=== PATIENT | male | born 1955 | race Caucasian/White ===

== ENCOUNTER 2021-06-10 08:05 | Day surgery (SDC) | payer OTHER ==
[2021-06-03 15:41] VITALS: BMI 25.5
[~2021-06-10 08:05] MED LIST: LACTATED RINGERS 1,000 ML IV SCH
[2021-06-10 08:31] VITALS: TEMP 97.6
[2021-06-10] MEDS ORDERED: LIDOCAINE 1% (10MG/ML) FOR IV START INTRADERMA ONE (08:31)
[2021-06-10] MEDS ORDERED: LIDOCAINE 1% INJ 10MG/ML (20 ML MDV) ONE (08:44)
[2021-06-10] MEDS ORDERED: PROPOFOL 10 MG/ML 20 ML VIAL IV ONE (08:44)
--- NOTE | 2021-06-10 08:48 | P.GSHP ---
History of Present Illness H&P Date: 06/10/21 Chief Complaint: Colon cancer screening 66-year-old male here today for screening colonoscopy. His last colonoscopy was 15 years ago. No bowel complaints. No family history of colon cancer. Past Medical History Past Medical History: Supraventricular Tachycardia (SVT) History of Any Multi-Drug Resistant Organisms: None Reported Additional Past Surgical History / Comment(s): Colonoscopy Past Anesthesia/Blood Transfusion Reactions: Motion Sickness Smoking Status: Never smoker - Past Family History Mother Sister(s) Family Medical History: Cancer Additional Family Medical History / Comment(s): breast cancer Father Family Medical History: Cancer Additional Family Medical History / Comment(s): blood cancer Medications and Allergies Home Medications Medication Instructions Recorded Confirmed Type [place] 3 Fish Oil(Unknown Dose) 1 tab PO DAILY 06/03/21 06/10/21 History Vitamin C (Unknown Dose) 1 tab PO DAILY 06/03/21 06/10/21 History Vitamin D3 (Unknown Dose) 1 tab PO DAILY 06/03/21 06/10/21 History Zinc (Unknown Dose) 1 tab PO DAILY 06/03/21 06/10/21 History Allergies Allergy/AdvReac Type Severity Reaction Status Date / Time No Known Allergies Allergy Verified 06/10/21 08:23 Surgical - Exam Vital Signs Temp Pulse Resp BP Pulse Ox 97.6 F 87 16 129/86 97 06/10/21 08:26 06/10/21 08:26 06/10/21 08:26 06/10/21 08:26 06/10/21 08:26 Physical exam: General: Well-developed, well-nourished HEENT: Normocephalic, sclerae nonicteric Abdomen: Nontender, nondistended Extremities: No edema Neuro: Alert and oriented Assessment and Plan (1) Colon cancer screening Narrative/Plan: Will proceed with colonoscopy at this time Current Visit: Yes Status: Acute Code(s): Z12.11 - ENCOUNTER FOR SCREENING FOR MALIGNANT NEOPLASM OF COLON SNOMED Code(s): 025000466
--- NOTE | 2021-06-10 09:05 | P.PCN ---
Date of Procedure: 06/10/21 Procedure(s) Performed: PREOPERATIVE DIAGNOSIS: Colon cancer screening POSTOPERATIVE DIAGNOSIS: Small ascending colon polyp, diverticulosis PROCEDURE: Colonoscopy with snare polypectomy ANESTHESIA: MAC SURGEON: Pepe Gustafson M.D. SPECIMENS: Ascending colon polyp ENDOSCOPIC PROCEDURE: The patient was placed on the endoscopy table in the left decubitus position. The Olympus colonoscope was inserted into the anus and passed under direct visualization to the base of the cecum. The appendiceal orifice was visualized. From that point the scope was slowly withdrawn inspecting all surfaces carefully. There were no neoplastic inflammatory or polypoid lesions throughout the cecum. In the ascending colon a small polyp was removed using the snare with cautery technique. The remainder of the ascending transverse descending or rectum appeared normal. There was mild to moderate sigmoid diverticulosis present without inflammatory changes. Digital rectal examination was normal. The patient was taken to the recovery room in stable condition per anesthesia guidelines. RECOMMENDATIONS: Resume diet. Await biopsy results.
[2021-06-10 09:24] VITALS: RESP 16
[2021-06-10 09:42] VITALS: PULSE 68
[2021-06-10 10:09] VITALS: BP 129/81
== END 2021-06-10 10:20 | disposition home or self-care (01) ==
LOC: ORWHC2ENDO 08:05
PROVIDERS: ATTEND Surgery
DX: Z12.11 Encounter for screening for malignant neoplasm of colon (principal); K63.5 Polyp of colon; K57.30 Diverticulosis of large intestine without perforation or abscess without bleeding; I47.1 Supraventricular tachycardia; Z80.8 Family history of malignant neoplasm of other organs or systems; Z80.3 Family history of malignant neoplasm of breast
CPT/HCPCS: 88305; 45385; J2001; J2704

== ENCOUNTER → 2023-06-07 | Outpatient (CLI) | payer OTHER ==
--- NOTE | 2023-06-07 15:18 | CT ---
EXAMINATION TYPE: CT heart w calcium score DATE OF EXAM: 06/07/2023 COMPARISON: None HISTORY: Screening for cardiovascular disorder. 213.9 CT DLP: 87.4 mGycm Automated exposure control for dose reduction was used. CT CALCIUM SCORING Coronary calcium is a marker for plaque (fatty deposits) in a blood vessel or atherosclerosis (harden ing of the arteries). The presence and amount of calcium detected in a coronary artery by the CT sca n, indicates the presence and amount of atherosclerotic plaque. These calcium deposits appear years before the development of heart disease symptoms such as chest pain and shortness of breath. A calcium score is computed for each of the coronary arteries based upon the volume and density of th e calcium deposits. This can be referred to as your calcified plaque burden. It does not correspond directly to the percentage of narrowing in the artery but does correlate with the severity of the un derlying coronary atherosclerosis. PROCEDURE TECHNIQUE - Prospective Gating was used. Slice thickness: 3mm. Density threshold (HU): 130, Pixel threshold: 3, Algorithm: discrete. RESULTS Region: LM Calcium Score ([place]): 70 Volume (mm3): 70 Mass (g): 23.33 Region: RCA Calcium Score ([place]): 27.7 Volume (mm3): 20.78 Mass (g): 6.93 Region: LAD Calcium Score ([place]): 234.25 Volume (mm3): 190.59 Mass (g): 63.53 Region: CX Calcium Score ([place]): 116.82 Volume (mm3): 90.78 Mass (g): 30.26 Region: PDA Calcium Score ([place]): 0 Volume (mm3): 0 Mass (g): 0 Total: Calcium Score ([place]): 448.77 Volume (mm3): 372.14 Mass (g): 124.05 TOTAL CALCIUM SCORE: 448.77 IMPRESSION: Calcium Score: 449 Implication: Extensive atherosclerotic plaquing present. Significant coronary artery stenosis likely present. Risk of Coronary Artery Disease: Elevated Impression: 1. Atheromatous plaquing likely with high probability of at least one area of significant flow-limiti ng stenosis within the coronary vessels. Additional cardiac workup recommended CALCIUM SCORE IMPLICATION RISK OF C ORONARY ARTERY DISEASE 0 No identifiable plaque Very low, generally less than 5% 1-10 Minimal identifiable plaque Very unlikely, less than 10% 11-100 Definite, at least mild atherosclerotic plaque Mild or m inimal coronary narrowings likely 101-400 Definite, at least moderate atherosclerotic plaque Mild coronary ar erica disease highly likely, significant narrowing possible 401 or Higher Extensive atherosclerotic plaque High lik elihood of at least one significant coronary narrowing
== END | disposition home or self-care (01) ==
LOC: RADCTMAIN 13:55
PROVIDERS: ATTEND Internal Medicine Clinical Cardiac Electrophysiology
DX: Z13.6 Encounter for screening for cardiovascular disorders (principal); I25.10 Atherosclerotic heart disease of native coronary artery without angina pectoris
CPT/HCPCS: 75571

== ENCOUNTER 2024-07-15 13:40 | Inpatient (IN) | payer MEDICARE, OTHER ==
[2024-07-15] MEDS ORDERED: HEPARIN SODIUM 1,000 UN/ML (10ML VL) IV PRN (14:03)
--- NOTE | 2024-07-15 14:13 | ED ---
General Adult HPI - General Chief complaint: Chest Pain Stated complaint: chest pain Time Seen by Provider: 07/15/24 13:48 Source: patient, RN notes reviewed, old records reviewed Mode of arrival: ambulatory Limitations: no limitations - History of Present Illness Initial comments: 69-year-old male presenting for evaluation of central chest pain and pressure with belching and radiation to the left arm. Symptoms have been present for the past several days but have worsened and become more constant over the last 45 minutes. Patient has no prior history of CAD. Nontobacco user. - Related Data Home Medications Medication Instructions Recorded Confirmed No Known Home Medications 07/15/24 07/15/24 Allergies Allergy/AdvReac Type Severity Reaction Status Date / Time No Known Allergies Allergy Verified 07/15/24 14:25 Review of Systems ROS Statement: Those systems with pertinent positive or pertinent negative responses have been documented in the HPI. ROS Other: All systems not noted in ROS Statement are negative. Past Medical History Past Medical History: Supraventricular Tachycardia (SVT) History of Any Multi-Drug Resistant Organisms: None Reported Additional Past Surgical History / Comment(s): Colonoscopy Past Anesthesia/Blood Transfusion Reactions: Motion Sickness Smoking Status: Never smoker - Past Family History Mother Sister(s) Family Medical History: Cancer Additional Family Medical History / Comment(s): breast cancer Father Family Medical History: Cancer Additional Family Medical History / Comment(s): blood cancer General Exam Limitations: no limitations General appearance: alert, in no apparent distress Head exam: Present: atraumatic, normocephalic Eye exam: Present: normal appearance, PERRL ENT exam: Present: normal exam Neck exam: Present: normal inspection. Absent: tenderness, meningismus Respiratory exam: Present: normal lung sounds bilaterally. Absent: respiratory distress, wheezes Cardiovascular Exam: Present: regular rate, normal rhythm GI/Abdominal exam: Present: soft. Absent: distended, tenderness, guarding Extremities exam: Present: normal inspection, normal capillary refill. Absent: pedal edema, joint swelling Neurological exam: Present: alert, oriented X3, CN II-XII intact. Absent: motor sensory deficit Psychiatric exam: Present: normal affect, normal mood Skin exam: Present: warm, dry, intact. Absent: cyanosis, diaphoretic Course Vital Signs 07/15/24 13:42 Temperature 97.4 F L Pulse Rate 78 Respiratory 18 Rate Blood Pressure 160/93 O2 Sat by Pulse 99 Oximetry - Reevaluation(s) Reevaluation #1: 07/15/[address] Du in the emergency department, recommends aspirin, heparin, Lipitor and nitroglycerin. Will monitor for elevated troponin and worsening symptoms and need for Plant Control Aide. Medical Decision Making - Medical Decision Making Was pt. sent in by a medical professional or institution (, [facility], [facility], urgent care, hospital, or fdc...) When possible be specific @ -[No] Did you speak to anyone other than the patient for history (EMS, parent, family, police, friend...)? What history was obtained from this source @ -[No] Did you review nursing and triage notes (agree or disagree)? Why? @ -[I reviewed and agree with nursing and triage notes] Were old charts reviewed (outside hosp., previous admission, EMS record, old EKG, old radiological studies, urgent care reports/EKG's, fdc records)? Report findings @ -[No old charts were reviewed] Differential Chest Pain: Stable Angina, Unstable Angina, STEMI, NSTEMI Aortic Dissection, Pneumothorax, Musculoskeletal, Esophageal Spasm GERD, Cholecystitis, Pancreatitis, Zoster, this is not meant to be an all-inclusive list. EKG interpreted by me (3pts min.). @ -Sinus rhythm with inferior lateral ST segment depression rate of 78, PA interval 135, QRS duration 114, QTc 406. No old for comparison X-rays interpreted by me (1pt min.). @ -[None done] CT interpreted by me (1pt min.). @ -[None done] U/S interpreted by me (1pt. min.). @ -[None done] What testing was considered but not performed or refused? (CT, X-rays, U/S, labs)? Why? @ -[None] What meds were considered but not given or refused? Why? @ -[None] Did you discuss the management of the patient with other professionals (professionals i.e. [facility], [facility], lab, RT, psych nurse, forensic social worker, editor map, teacher, preventive medicine officer, child support case officer)? Give summary @ -Sent in by Dr. Masters, Case discussed with Dr. Du who is able to see the patient in the emergency department, admitted to Dr. Castillo Was smoking cessation discussed for >3mins.? @ -[No] Was critical care preformed (if so, how long)? @ -Yes 35 minutes Were there social determinants of health that impacted care today? How? (Homelessness, low income, unemployed, alcoholism, drug addiction, transportation, low edu. Level, literacy, decrease access to med. care, fdc, rehab)? @ -[No] Was there de-escalation of care discussed even if they declined (Discuss DNR or withdrawal of care, Hospice)? DNR status @ -[No] What co-morbidities impacted this encounter? (DM, HTN, Smoking, COPD, CAD, Cancer, CVA, ARF, Chemo, Hep., AIDS, mental health diagnosis, sleep apnea, morbid obesity)? @ -[None] Was patient admitted / discharged? Hospital course, mention meds given and route, prescriptions, significant lab abnormalities, going to OR and other pertinent info. @ -69-year-old male with central chest pressure concerning for ACS. EKG shows inferior lateral ST segment depression and T wave inversion. Patient is evaluated by cardiology in the emergency department. He will be admitted for concern for unstable angina and non-ST segment elevated MD, initial troponin is 0.024 awaiting 3-hour redraw. Patient had been given aspirin, nitroglycerin, Lipitor and started on heparin in the emergency department. Undiagnosed new problem with uncertain prognosis? @ -[No] Drug Therapy requiring intensive monitoring for toxicity (Heparin, Nitro, Insulin, Cardizem)? @ -[No] Were any procedures done? @ -[No] Diagnosis/symptom? @ -[Unstable angina Acute, or Chronic, or Acute on Chronic? @ -Acute Uncomplicated (without systemic symptoms) or Complicated (systemic symptoms)? @ -[default] Side effects of treatment? @ -[No] Exacerbation, Progression, or Severe Exacerbation? @ -[No] Poses a threat to life or bodily function? How? (Chest pain, [place], MD, pneumonia, PE, COPD, DKA, ARF, appy, cholecystitis, CVA, Diverticulitis, Homicidal, Suicidal, threat to staff... and all critical care pts) @Yes, ACS - Lab Data Result diagrams: 07/15/24 14:12 07/15/24 14:12 Lab Results 07/15/24 07/15/24 07/15/24 Range/Units 14:12 14:12 14:12 WBC 6.4 (3.8-10.6) k/uL RBC 5.69 (4.30-5.90) m/uL Hgb 16.8 (13.0-17.5) gm/dL Hct 51.1 (39.0-53.0) % MCV 90.0 (80.0-100.0) fL MCH 29.5 (25.0-35.0) pg MCHC 32.8 (31.0-37.0) g/dL RDW 12.4 (11.5-15.5) % Plt Count 184 (150-450) k/uL MPV 7.5 Neutrophils % 59 % Lymphocytes % 30 % Monocytes % 7 % Eosinophils % 1 % Basophils % 1 % Neutrophils # 3.7 (1.3-7.7) k/uL Lymphocytes # 1.9 (1.0-4.8) k/uL Monocytes # 0.5 (0-1.0) k/uL Eosinophils # 0.1 (0-0.7) k/uL Basophils # 0.0 (0-0.2) k/uL PT 10.4 (10.0-12.5) sec INR 0.9 (<1.2) APTT 25.4 (22.0-30.0) sec Sodium 138 (137-145) mmol/L Potassium 3.8 (3.5-5.1) mmol/L Chloride 103 (98-107) mmol/L Carbon Dioxide 23 (22-30) mmol/L Anion Gap 12 mmol/L BUN 18 (9-20) mg/dL Creatinine 0.87 (0.66-1.25) mg/dL Est GFR (CKD-EPI)AfAm >90 (>60 ml/min/1.73 sqM) Est GFR (CKD-EPI)NonAf 90 (>60 ml/min/1.73 sqM) Glucose 133 H (74-99) mg/dL Calcium 9.7 (8.4-10.2) mg/dL Magnesium 2.3 (1.6-2.3) mg/dL Total Bilirubin 0.7 (0.2-1.3) mg/dL AST 22 (17-59) U/L ALT 21 (4-49) U/L Alkaline Phosphatase 77 (38-126) U/L Troponin I (0.000-0.034) ng/mL Total Protein 7.3 (6.3-8.2) g/dL Albumin 4.6 (3.5-5.0) g/dL 07/15/24 Range/Units 14:12 WBC (3.8-10.6) k/uL RBC (4.30-5.90) m/uL Hgb (13.0-17.5) gm/dL Hct (39.0-53.0) % MCV (80.0-100.0) fL MCH (25.0-35.0) pg MCHC (31.0-37.0) g/dL RDW (11.5-15.5) % Plt Count (150-450) k/uL MPV Neutrophils % % Lymphocytes % % Monocytes % % Eosinophils % % Basophils % % Neutrophils # (1.3-7.7) k/uL Lymphocytes # (1.0-4.8) k/uL Monocytes # (0-1.0) k/uL Eosinophils # (0-0.7) k/uL Basophils # (0-0.2) k/uL PT (10.0-12.5) sec INR (<1.2) APTT (22.0-30.0) sec Sodium (137-145) mmol/L Potassium (3.5-5.1) mmol/L Chloride (98-107) mmol/L Carbon Dioxide (22-30) mmol/L Anion Gap mmol/L BUN (9-20) mg/dL Creatinine (0.66-1.25) mg/dL Est GFR (CKD-EPI)AfAm (>60 ml/min/1.73 sqM) Est GFR (CKD-EPI)NonAf (>60 ml/min/1.73 sqM) Glucose (74-99) mg/dL Calcium (8.4-10.2) mg/dL Magnesium (1.6-2.3) mg/dL Total Bilirubin (0.2-1.3) mg/dL AST (17-59) U/L ALT (4-49) U/L Alkaline Phosphatase (38-126) U/L Troponin I 0.024 (0.000-0.034) ng/mL Total Protein (6.3-8.2) g/dL Albumin (3.5-5.0) g/dL Critical Care Time Critical Care Time: Yes Total Critical Care Time: 35 Disposition Clinical Impression: Unstable angina pectoris Disposition: ADMITTED IP TO THIS [facility] Condition: Stable Is patient prescribed a controlled substance at d/c from ED?: No Referrals: River Lehman Jr, [Primary Care Provider] - 1-2 days Time of Disposition: 15:01
[2024-07-15] MEDS: ATORVASTATIN 80 MG TAB PO STA (14:14)
[2024-07-15] MEDS: ASPIRIN 325 MG TAB PO STA (14:14)
[2024-07-15] MEDS: HEPARIN SODIUM 1,000 UN/ML (10ML VL) IV ONE (14:15)
[2024-07-15] MEDS: HEPARIN SOD,PORK IN 0.45% NACL 25,000 UNIT in 0.45% NACL 1 250ML.BAG IV SCH (14:20)
[2024-07-15 14:25] LABS: Basophils % (A) 1 %; Eosinophils # (A) 0.1 k/uL (0-0.7); Eosinophils % (A) 1 %; HCT 51.1 % (39.0-53.0); HGB 16.8 gm/dL (13.0-17.5); Lymphocytes # (A) 1.9 k/uL (1.0-4.8); Lymphocytes % (A) 30 %; MCH 29.5 pg (25.0-35.0); MCHC 32.8 g/dL (31.0-37.0); Mean Platelet Volume 7.5; Monocytes # (A) 0.5 k/uL (0-1.0); Monocytes % (A) 7 %; Neutrophils # (A) 3.7 k/uL (1.3-7.7); Neutrophils % (A) 59 %; Platelet Count 184 k/uL (150-450); RBC 5.69 m/uL (4.30-5.90); RDW 12.4 % (11.5-15.5); WBC 6.4 k/uL (3.8-10.6)
[2024-07-15 14:33] LABS: INR 0.9 (<1.2); Partial Thromboplastin Time 25.4 sec (22.0-30.0); Prothrombin Time 10.4 sec (10.0-12.5)
[2024-07-15 14:36] LABS: ALT 21 U/L (4-49); AST 22 U/L (17-59); African American GFR (CKD) >90 (>60 ml/min/1.73 sqM); Albumin 4.6 g/dL (3.5-5.0); Alkaline Phosphatase 77 U/L (38-126); Anion Gap 12 mmol/L; Blood Urea Nitrogen 18 mg/dL (9-20); Calcium 9.7 mg/dL (8.4-10.2); Carbon Dioxide 23 mmol/L (22-30); Chloride 103 mmol/L (98-107); Glucose 133 mg/dL (74-99); Magnesium 2.3 mg/dL (1.6-2.3); Non-African American GFR(CKD) 90 (>60 ml/min/1.73 sqM); Potassium 3.8 mmol/L (3.5-5.1); Sodium 138 mmol/L (137-145); Total Bilirubin 0.7 mg/dL (0.2-1.3); Total Protein 7.3 g/dL (6.3-8.2)
--- NOTE | 2024-07-15 14:42 | P.CRDCN ---
History of Present Illness Consult date: 07/15/24 Consult reason: chest pain Chief complaint: Chest pain History of present illness: History of present illness: Patient is a pleasant 69-year-old male with significant past medical history of SVT who presented to the emergency department with complaints of chest pain. He does follow with Dr. Rey. Since he has been having worsening chest tightness and back pain that is worse with eating and improves with burping. He did see his PCP this morning and was concerned about possible ulcer versus gallbladder. He ate a light lunch and then on the way home developed 10 out of 10 chest pain that lasted for approximately 40 minutes before it started to subside. Pain was radiating down both arms. He is still having chest pain at this time and rates it as a 2 out of 10. He was nauseous, did not denies any diaphoresis or vomiting. EKG does show diffuse ST depressions and borderline elevation in aVR. He also has been dealing with a tooth infection and has been taking ibuprofen and antibiotics. He denies any prior history of [place]. He is not a smoker, drinks rare alcohol. He is normally very active. Only family history of SVT. He did have a prior CT calcium score 05/2023 with total calcium score 449 showing LAD 234, CX 116, RCA 27. REVIEW OF SYSTEMS: No fever or chills. No cough or expectoration. No diaphoresis. Patient denies headache, dizziness, blurred vision, double vision. No nausea, vomiting. No hematochezia. No hematemesis. Denies any black stools or blood in his stools. Denies dysuria or hematuria. No muscle weakness or numbness. Reports chest pain and pressure, belching. PHYSICAL EXAMINATION: This is a 69-year-old male in no apparent distress at the time of my examination. HEENT: Head is atraumatic, normocephalic. Pupils are equal, round. Sclerae anicteric. Conjunctivae are clear. Mucous membranes of the mouth are moist. Neck is supple. There is no jugular venous distention. No carotid bruit is heard. CHEST EXAMINATION: Lungs are clear to auscultation. No chest wall tenderness is noted on palpation or with deep breathing. HEART EXAMINATION: Heart regular rate and rhythm. S1, S2 heard. No murmurs, gallops or rub. ABDOMEN: Soft, nontender. Bowel sounds are heard. EXTREMITIES: 2+ peripheral pulses with no evidence of peripheral edema and no calf tenderness noted. NEUROLOGIC EXAMINATION: Patient is awake, alert and oriented x3. IMPRESSION AND PLAN: Abnormal EKG consistent with ACS Chest pain Coronary artery calcifications as seen on CT, total calcium score 449 Recent tooth infection History of SVT PLAN: EKG is abnormal with diffuse ST depressions and borderline ST elevation of aVR. Recommend aspirin, heparin drip, Lipitor, and nitroglycerin. Troponins are pending. If he is still having active chest pain despite nitroglycerin or abnormal troponins we will likely proceed with emergent heart catheterization. Check echocardiogram. Will follow. I am dictating on behalf of Dr. Benjamin Du's history/physical and assessment/plan. Past Medical History Past Medical History: Supraventricular Tachycardia (SVT) History of Any Multi-Drug Resistant Organisms: None Reported Additional Past Surgical History / Comment(s): Colonoscopy Past Anesthesia/Blood Transfusion Reactions: Motion Sickness Smoking Status: Never smoker - Past Family History Mother Sister(s) Family Medical History: Cancer Additional Family Medical History / Comment(s): breast cancer Father Family Medical History: Cancer Additional Family Medical History / Comment(s): blood cancer Medications and Allergies Home Medications Medication Instructions Recorded Confirmed Type No Known Home Medications 07/15/24 07/15/24 History Allergies Allergy/AdvReac Type Severity Reaction Status Date / Time No Known Allergies Allergy Verified 07/15/24 14:25 Physical Exam Vitals: Vital Signs Temp Pulse Resp BP Pulse Ox 07/15/24 13:42 97.4 F L 78 18 160/93 99 Intake and Output 07/14/24 07/15/24 07/15/24 22:59 06:59 14:59 Other: Weight 98.883 kg Results 07/15/24 14:12 07/15/24 14:12 CBC 07/15/24 Range/Units 14:12 WBC 6.4 (3.8-10.6) k/uL RBC 5.69 (4.30-5.90) m/uL Hgb 16.8 (13.0-17.5) gm/dL Hct 51.1 (39.0-53.0) % Plt Count 184 (150-450) k/uL Current Medications Generic Name Dose Route Start Last Admin Trade Name Freq PRN Reason Stop Dose Admin Heparin Sodium (Porcine) 0 unit 07/15/24 14:03 Heparin Sodium 1,000 Un/Ml (10ml Vl) IV PER PROTOCOL PRN Low PTT Protocol Heparin Sodium/Sodium Chloride 250 mls @ 10 mls/hr 07/15/24 14:15 07/15/24 14:20 25,000 unit/ Sodium Chloride IV 10.113 units/kg/hr .Q24H FOUZIA 10 mls/hr Administration Protocol 10.113 UNITS/KG/HR Nitroglycerin 0.4 mg 07/15/24 14:03 Nitroglycerin Sl Tabs 0.4 Mg Tab SUBLINGUAL Q5M PRN Chest Pain Intake and Output 07/14/24 07/15/24 07/15/24 22:59 06:59 14:59 Other: Weight 98.883 kg Patient Weight 07/16/24 06:59 Weight 98.883 kg 07/15/24 14:12
--- NOTE | 2024-07-15 14:44 | XR ---
EXAMINATION TYPE: XR chest 1V portable DATE OF EXAM: 07/15/2024 2:37 PM COMPARISON: None. CLINICAL INDICATION: Male, 69 years old with history of Pain; H TECHNIQUE: XR chest 1V portable Frontal view of the chest. FINDINGS: Lungs/Pleura: There is no evidence of pleural effusion, focal consolidation, or pneumothorax. Pulmonary vascularity: Unremarkable. Heart/mediastinum: Cardiomediastinal silhouette is unremarkable. Musculoskeletal: No acute osseous pathology. Other findings: None IMPRESSION: No acute cardiopulmonary disease/process. [facility], , 07/15/2024 2:41 PM
[2024-07-15] MEDS ORDERED: NALOXONE 0.4 MG/ML 1 ML VIAL IV PRN (14:58)
[2024-07-15] MEDS ORDERED: ACETAMINOPHEN TAB 325 MG TAB PO PRN (14:58)
[2024-07-15] MEDS ORDERED: ONDANSETRON 4 MG/2 ML VIAL IVP PRN (14:58)
[2024-07-15] MEDS: NITROGLYCERIN SL TABS 0.4 MG TAB SUBLINGUAL PRN (15:22)
[2024-07-15 18:18] VITALS: RESP 16
[2024-07-15] MEDS: MIDAZOLAM 2 MG/2 ML VIAL IVP ONE (18:20)
[2024-07-15] MEDS: fentaNYL (PF) 50 MCG/ML 2 ML AMP IVP ONE (18:20)
[2024-07-15] MEDS: LIDOCAINE 1% INJ 10MG/ML (20 ML MDV) SQ ONE (18:23)
[2024-07-15] MEDS: VERAPAMIL SYRINGE (5 MG/10 ML) INTRAARTER ONE (18:25)
[2024-07-15] MEDS: HEPARIN SODIUM 1,000 UN/ML (10ML VL) IVP ONE ×3 (18:30→18:50)
[2024-07-15] MEDS: TIROFIBAN 12.5MG-250ML NS 250 ML IV ONE (18:30)
[2024-07-15] MEDS: TICAGRELOR 90 MG TAB PO ONE (18:36)
[2024-07-15] MEDS: SODIUM CHLORIDE 0.9% 1,000 ML IV ONE (18:42)
[2024-07-15] MEDS: HEPARIN SODIUM,PORCINE 10,000 UNIT in SODIUM CHLORIDE 0.9% 1,000 ML IRRIGATION ONE (18:43)
[2024-07-15] MEDS: HEPARIN SODIUM,PORCINE (1 ML) 2,500 UNIT in SODIUM CHLORIDE 0.9% 250 ML IRRIGATION ONE (18:43)
[2024-07-15] MEDS: NITROGLYCERIN 1000MCG/10ML SYRINGE INTRACORON ONE ×2 (18:55→19:16)
[2024-07-15] MEDS: IOPAMIDOL-370 100ML BTL INJ ONE ×2 (18:56→19:31)
[2024-07-15] MEDS: PANTOPRAZOLE 40 MG/10 ML VIAL IVP SCH (20:36)
[2024-07-16 07:13] LABS: Basophils % (A) 0 %; Eosinophils # (A) 0.1 k/uL (0-0.7); Eosinophils % (A) 1 %; HCT 45.8 % (39.0-53.0); HGB 15.3 gm/dL (13.0-17.5); Lymphocytes # (A) 1.5 k/uL (1.0-4.8); Lymphocytes % (A) 22 %; MCH 30.6 pg (25.0-35.0); MCHC 33.4 g/dL (31.0-37.0); MCV 91.5 fL (80.0-100.0); Mean Platelet Volume 7.6; Monocytes # (A) 0.5 k/uL (0-1.0); Monocytes % (A) 8 %; Neutrophils # (A) 4.8 k/uL (1.3-7.7); Neutrophils % (A) 68 %; Platelet Count 167 k/uL (150-450); RDW 12.6 % (11.5-15.5); WBC 7.1 k/uL (3.8-10.6)
[2024-07-16 07:14] LABS: Prothrombin Time 10.7 sec (10.0-12.5)
[2024-07-16 08:11] VITALS: TEMP 98.7
[2024-07-16] MEDS: METOPROLOL TARTRATE 25 MG TAB PO SCH (08:16)
[2024-07-16] MEDS: ASPIRIN 81 MG PO SCH (08:16)
[2024-07-16] MEDS: SODIUM CHLORIDE 0.9% 1,000 ML IV SCH (08:20)
--- NOTE | 2024-07-16 09:03 | CA ---
Transthoracic Echo Report Name: Gaston Shaver Age: 69 Gender: M : 1955 Exam Date: 07/15/2024 16:27 Exam Location: [facility] Ht (in): 76 Wt (lb): 218 Ordering Physician: Marylu Bar Attending/Referring Phys: Silverware Buffer Elsie Contreras RDCS Procedure CPT: Indications: Chest Pain Cardiac Hx: Technical Quality: Fair Contrast 1: Total Dose (mL): Contrast 2: Total Dose (mL): MEASUREMENTS (Male / Female) Normal Values 2D ECHO LV Diastolic Diameter PLAX 4.5 cm 4.2 - 5.9 / 3.9 - 5.3 cm LV Systolic Diameter PLAX 3.9 cm IVS Diastolic Thickness 1.5 cm 0.6 - 1.0 / 0.6 - 0.9 cm LVPW Diastolic Thickness 1.5 cm 0.6 - 1.0 / 0.6 - 0.9 cm LV Relative Wall Thickness 0.7 RV Internal Dim ED PLAX 3.7 cm LA Systolic Diameter LX 3.2 cm 3.0 - 4.0 / 2.7 - 3.8 cm LV Diastolic Volume MOD 4C 84.3 cm??? LV Systolic Volume MOD 4C 43.6 cm??? LV Ejection Fraction MOD 4C 48.3 % LV Cardiac Index MOD 4C 1198.5 cm???/min???m??? LV Diastolic Length 4C 8.4 cm LV Systolic Length 4C 8.1 cm LV Diastolic Volume MOD 2C 91.6 cm??? LV Systolic Volume MOD 2C 50.0 cm??? LV Ejection Fraction MOD 2C 45.4 % LV Cardiac Index MOD 2C 1223.2 cm???/min???m??? LV Diastolic Length 2C 9.3 cm LV Systolic Length 2C 8.2 cm LA Volume 63.4 cm??? 18 - 58 / 22 - 52 cm??? LA Volume Index 27.4 cm???/m??? 16 - 28 cm???/m??? M-MODE Aortic Root Diameter MM 4.1 cm DOPPLER AV Peak Velocity 111.8 cm/s AV Peak Gradient 5.0 mmHg AI Peak Velocity 319.6 cm/s AI Peak Gradient 40.8 mmHg AI Pressure Half Time 941.5 ms MV Area PHT 3.3 cm??? Mitral E Point Velocity 60.7 cm/s Mitral A Point Velocity 71.8 cm/s Mitral E to A Ratio 0.8 MV Deceleration Time 231.7 ms TR Peak Velocity 220.3 cm/s TR Peak Gradient 19.4 mmHg Right Ventricular Systolic Press 24.1 mmHg FINDINGS Left Ventricle Left ventricular ejection fraction is estimated at 35-40 %. Moderately increased septal wall thickness. Left ventricular cavity size normal. Apical hypokinesis Right Ventricle Mild right ventricular dilatation. Right ventricular systolic pressure within normal limits. Right Atrium Normal right atrial size. No right atrial thrombus or mass seen. Left Atrium Mildly increased left atrial volume. No left atrial thrombus or mass present. Mitral Valve Structurally normal mitral valve. Elongation of the anterior mitral valve leaflet. Aortic Valve Trileaflet aortic valve. Trace aortic regurgitation. No aortic stenosis. Tricuspid Valve Structurally normal tricuspid valve. Mild tricuspid regurgitation. Pulmonic Valve Structurally normal pulmonic valve. Trace pulmonic regurgitation. Pericardium No pericardial effusion. Aorta Mild aortic dilatation at the level of the sinuses of valsalva 41 mm CONCLUSIONS Left ventricular ejection fraction 35-40% with anterior apical hypokinesis Moderately increased left ventricular wall thickness RVSP 24 Mild tricuspid regurgitation No pericardial effusion Aortic root measuring 4.1 cm Previewed by: Dr. Benjamin Du DO (Electronically Signed) Final Date: 16 July 2024 09:02
[2024-07-16] MEDS ORDERED: RX INFO: IV CONTRAST WAS GIVEN 1 EACH MISC MISCELLANE PRN (09:07)
[2024-07-16] MEDS ORDERED: MAG HYDROX/AL HYDROX/SIMETH 30 ML CUP PO PRN (09:07)
[2024-07-16] MEDS ORDERED: ATROPINE SULFATE 0.1 MG/ML 10ML SYRINGE IV PRN (09:07)
[2024-07-16] MEDS ORDERED: ZOLPIDEM 5 MG TAB PO PRN (09:07)
[2024-07-16] MEDS ORDERED: SODIUM CHLORIDE 0.9% 1,000 ML in EMPTY BAG 1 BAG IV SCH (09:15)
[2024-07-16] MEDS: LOSARTAN 25 MG TAB PO SCH (12:05)
[2024-07-16 12:07] VITALS: BP 124/74; PULSE 71
--- NOTE | 2024-07-16 12:32 | P.HPIM ---
History of Present Illness H&P Date: 07/16/24 Chief Complaint: Chest pain This is a 69-year-old male well-known to my partner. He has a history of borderline hyperlipidemia with elevated calcium score. He sees cardiology for history of SVT. He takes no medications at home. He reports having chest pain intermittently over the past several days. He had seen Dr. Lehman over breakfast yesterday morning and after leaving him had more severe chest pain. There were concerns about possibly peptic ulcer disease. The chest pain became quite severe and he would proceed emergency room. He had an abnormal EKG with a ST change depression but a normal troponin initially. His second and third troponin were quite elevated. He was taken to the [facility] for emergent procedure. He was on a heparin drip. He underwent a left heart catheterization and stenting of the LAD with a drug-eluting stent. Later on a echocardiogram was done showing ventricular ejection fraction 35 to 40% with anterior apical hypokinesis. He has evident moderate increased left ventricular wall thickness. After being on heparin drip overnight. He has remained chest free. Currently denies any chest pains pressure shortness of breath nausea or vomiting. Review of Systems All systems: negative Past Medical History Past Medical History: Supraventricular Tachycardia (SVT) History of Any Multi-Drug Resistant Organisms: None Reported Additional Past Surgical History / Comment(s): Colonoscopy, heart cath wt 1 stent Past Anesthesia/Blood Transfusion Reactions: Motion Sickness Smoking Status: Never smoker Past Alcohol Use History: Rare Past Drug Use History: None Reported - Past Family History Mother Sister(s) Family Medical History: Cancer Additional Family Medical History / Comment(s): breast cancer Father Family Medical History: Cancer Additional Family Medical History / Comment(s): blood cancer Medications and Allergies Home Medications Medication Instructions Recorded Confirmed Type Aspirin 81 mg PO DAILY tab 07/16/24 Rx Atorvastatin [Lipitor] 80 mg PO HS #90 tab 07/16/24 Rx Losartan [Cozaar] 12.5 mg PO DAILY #45 tab 07/16/24 Rx Metoprolol Tartrate [Lopressor] 25 mg PO BID #180 tab 07/16/24 Rx Nitroglycerin Sl Tabs [Nitrostat] 0.4 mg SUBLINGUAL Q5M PRN #25 tab 07/16/24 Rx Allergies Allergy/AdvReac Type Severity Reaction Status Date / Time No Known Allergies Allergy Verified 07/15/24 14:25 Physical Exam Vitals: Vital Signs Temp Pulse Pulse Resp BP BP Pulse Ox 07/16/24 12:00 71 16 124/74 99 07/16/24 08:00 98.7 F 96 16 121/74 96 07/16/24 04:00 60 16 118/80 96 07/15/24 23:45 63 16 120/77 98 07/15/24 22:46 60 16 124/74 95 07/15/24 21:45 57 L 16 116/73 94 L 07/15/24 21:15 65 16 127/81 96 07/15/24 20:45 63 16 115/73 96 07/15/24 20:30 64 16 114/72 97 07/15/24 20:15 64 16 121/77 97 07/15/24 20:00 67 16 111/68 96 07/15/24 19:45 98.2 F 59 L 16 106/69 95 07/15/24 18:17 16 07/15/24 13:42 97.4 F L 78 18 160/93 99 Intake and Output 07/15/24 07/16/24 07/16/24 22:59 06:59 14:59 Intake Total 1874 Output Total 300 375 Balance 1874 -300 -375 Intake: IV 974 Oral 900 Output: Urine 300 375 Other: Voiding Method Toilet Toilet Toilet Urinal Urinal Urinal Weight 98.883 kg 98.5 kg GENERAL: Well-appearing, well-nourished and in no acute distress. HEAD: Atraumatic, normocephalic. EYES: Pupils equal round and reactive to light, extraocular movements intact, sclera anicteric, conjunctiva are normal. ENT:nares patent, oropharynx clear without exudates. Moist mucous membranes. NECK: Normal range of motion, supple without lymphadenopathy or JVD, no thyromegaly LUNGS: Breath sounds clear to auscultation bilaterally and equal. No wheezes rales or rhonchi. HEART: Regular rate and rhythm without murmurs, rubs or gallops.S1S2 Normal ABDOMEN: Soft, nontender, normoactive bowel sounds. No guarding, no rebound. No masses appreciated. EXTREMITIES: Normal range of motion, no pitting or edema. No clubbing or cyanosis. NEUROLOGICAL: Cranial nerves II through XII grossly intact. Normal speech, normal gait. PSYCH: Normal mood, normal affect. SKIN: Warm, Dry, normal turgor, no rashes or lesions noted. Results CBC & Chem 7: 07/16/24 06:33 07/15/24 14:12 Labs: Abnormal Lab Results - Last 24 Hours (Table) 07/15/24 07/15/24 07/15/24 Range/Units 14:12 15:40 19:49 APTT >200.0 H* (22.0-30.0) sec Glucose 133 H (74-99) mg/dL Troponin I 0.384 H* (0.000-0.034) ng/mL 07/15/24 Range/Units 19:49 APTT (22.0-30.0) sec Glucose (74-99) mg/dL Troponin I 7.770 H* (0.000-0.034) ng/mL Comments: Echo report, procedure report logs reviewed Chest x-ray: report reviewed Thrombosis Risk Factor Assmnt - DVT/VTE Prophylaxis DVT/VTE Prophylaxis: Pharmacologic Prophylaxis ordered (Patient on a heparin drip) - Choose All That Apply Any of the Below Risk Factors Present?: Yes Each Factor Represents 1 point: Obesity (BMI >25) Other Risk Factors: Yes Each Risk Factor Represents 2 Points: Age 61-74 years Other congenital or acquired thrombophilia - If yes, enter type in comment: No Thrombosis Risk Factor Assessment Total Risk Factor Score: 3 Thrombosis Risk Factor Assessment Level: Moderate Risk Assessment and Plan (1) Acute myocardial infarction involving left anterior descending (LAD) coronary artery Current Visit: Yes Status: Acute Code(s): I21.02 - STEMI INVOLVING LEFT ANTERIOR DESCENDING CORONARY ARTERY SNOMED Code(s): 50491936438414 (2) Unstable angina pectoris Current Visit: Yes Status: Acute Code(s): I20.0 - UNSTABLE ANGINA SNOMED Code(s): 4722774 Plan: Patient has been started by cardiology on as needed nitroglycerin, metoprolol, losartan, atorvastatin, and aspirin. He is stable may be discharged later today. Await further recommendation of cardiology, he may be reevaluated next 24 hours.
--- NOTE | 2024-07-16 12:34 | P.DS ---
Providers Date of admission: 07/15/24 14:59 Expected date of discharge: 07/16/24 Attending physician: Percy Castillo Consults: 07/15/24 14:58 Consult Physician Urgent Consulting Provider: Benjamin Du Consult Reason/Comments: UA Do you want consulting provider notified?: Already Contacted 07/16/24 09:07 Consult Physician Routine Consulting Provider: [facility] Consult Reason/Comments: Post Interventional Patient Do you want consulting provider notified?: Already Contacted Primary care physician: River Lehman - Discharge Diagnosis(es) (1) Acute myocardial infarction involving left anterior descending (LAD) coronary artery Current Visit: Yes Status: Acute (2) Unstable angina pectoris Current Visit: Yes Status: Acute Hospital Course: This is a 69-year-old male well-known to my partner. He has a history of borderline hyperlipidemia with elevated calcium score. He sees cardiology for history of SVT. He takes no medications at home. He reports having chest pain intermittently over the past several days. He had seen Dr. Lehman over breakfast yesterday morning and after leaving him had more severe chest pain. There were concerns about possibly peptic ulcer disease. The chest pain became quite severe and he would proceed emergency room. He had an abnormal EKG with a ST change depression but a normal troponin initially. His second and third troponin were quite elevated. He was taken to the [facility] for emergent procedure. He was on a heparin drip. He underwent a left heart catheterization and stenting of the LAD with a drug-eluting stent. Later on a echocardiogram wa s done showing ventricular ejection fraction 35 to 40% with anterior apical hypokinesis. He has evident moderate increased left ventricular wall thickness. After being on heparin drip overnight. He has remained chest free. Currently denies any chest pains pressure shortness of breath nausea or vomiting. 07/16/2024 addendum: Patient has been cleared by cardiology, he is tolerating his new medications, he has remained pain-free. Heparin drip has been discontinued. He will be sent home with close outpatient follow-up. Patient Condition at Discharge: Stable Plan - Discharge Summary Discharge Rx Participant: Yes New Discharge Prescriptions: New Losartan [Cozaar] 12.5 mg PO DAILY #45 tab Atorvastatin [Lipitor] 80 mg PO HS #90 tab Aspirin 81 mg PO DAILY tab Metoprolol Tartrate [Lopressor] 25 mg PO BID #180 tab Nitroglycerin Sl Tabs [Nitrostat] 0.4 mg SUBLINGUAL Q5M PRN #25 tab PRN Reason: Chest Pain Discharge Medication List Aspirin 81 mg PO DAILY tab 07/16/24 [Rx] Atorvastatin [Lipitor] 80 mg PO HS #90 tab 07/16/24 [Rx] Losartan [Cozaar] 12.5 mg PO DAILY #45 tab 07/16/24 [Rx] Metoprolol Tartrate [Lopressor] 25 mg PO BID #180 tab 07/16/24 [Rx] Nitroglycerin Sl Tabs [Nitrostat] 0.4 mg SUBLINGUAL Q5M PRN #25 tab 07/16/24 [Rx] Follow up Appointment(s)/Referral(s): River Lehman Jr, DO [Primary Care Provider] - 1-2 days Benjamin Du DO [STAFF PHYSICIAN] - 1 Week Discharge Disposition: HOME SELF-CARE
--- NOTE | 2024-07-16 13:39 | P.PN ---
Subjective Progress Note Date: 07/16/24 Consult reason: chest pain Chief complaint: Chest pain History of present illness: History of present illness: Patient is a pleasant 69-year-old male with significant past medical history of SVT who presented to the emergency department with complaints of chest pain. He does follow with Dr. Rey. Since he has been having worsening chest tightness and back pain that is worse with eating and improves with burping. He did see his PCP this morning and was concerned about possible ulcer versus gallbladder. He ate a light lunch and then on the way home developed 10 out of 10 chest pain that lasted for approximately 40 minutes before it started to subside. Pain was radiating down both arms. He is still having chest pain at this time and rates it as a 2 out of 10. He was nauseous, did not denies any diaphoresis or vomiting. EKG does show diffuse ST depressions and borderline elevation in aVR. He also has been dealing with a tooth infection and has been taking ibuprofen and antibiotics. He denies any prior history of NC. He is not a smoker, drinks rare alcohol. He is normally very active. Only family history of SVT. He did have a prior CT calcium score 05/2023 with total calcium score 449 showing LAD 234, CX 116, RCA 27. 3 Patient seen and examined. Patient was on Aggrastat overnight. Echocardiogram results reviewed with the patient and his PCP at the bedside and discuss the need for aggressive medical management including improving cholesterol to LDL of less than 70. Patient denies having any chest pain or pressure at this time. Blood pressure 121/74, heart rate 96, pulse ox 96% on room air. Repeat blood work reveals hemoglobin 15.3. TR band to the right wrist, no sign of bleeding or hematoma. Echocardiogram reveals EF of 35 to 40% with anterior apical hypokinesis. Moder ately increased left ventricular wall thickness. RVSP 24. Mild tricuspid regurgitation. No pericardial effusion. Aortic root measuring 4.1 cm. PHYSICAL EXAMINATION: This is a 69-year-old male in no apparent distress at the time of my examination. HEENT: Head is atraumatic, normocephalic. Pupils are equal, round. Sclerae anicteric. Conjunctivae are clear. Mucous membranes of the mouth are moist. Neck is supple. There is no jugular venous distention. No carotid bruit is heard. CHEST EXAMINATION: Lungs are clear to auscultation. No chest wall tenderness is noted on palpation or with deep breathing. HEART EXAMINATION: Heart regular rate and rhythm. S1, S2 heard. No murmurs, gallops or rub. ABDOMEN: Soft, nontender. Bowel sounds are heard. EXTREMITIES: 2+ peripheral pulses with no evidence of peripheral edema and no calf tenderness noted. NEUROLOGIC EXAMINATION: Patient is awake, alert and oriented x3. IMPRESSION AND PLAN: NSTEMI Ischemic cardiomyopathy with EF of 35 to 40% Hyperlipidemia Coronary artery calcifications as seen on CT, total calcium score 449 Recent tooth infection History of SVT PLAN: Continue current cardiac medications: Aspirin 81 mg daily, atorvastatin 80 mg daily, metoprolol tartrate 25 mg twice daily, Effient 10 mg daily Start patient on losartan 12.5 mg daily Patient is cleared for discharge from cardiology and may follow-up in the office with Dr. Du in 1 week. Nurse practitioner note has been reviewed, I agree with documented findings and plan of care. Patient was seen and examined. Objective - Vital Signs Vital signs: Vital Signs Temp 98.7 F 07/16/24 08:00 Pulse 96 07/16/24 08:00 Resp 16 07/16/24 08:00 BP 121/74 07/16/24 08:00 Pulse Ox 96 07/16/24 08:00 FiO2 Intake & Output 07/15/24 07/16/24 07/16/24 18:59 06:59 18:59 Intake Total 1514 360 Output Total 300 375 Balance 1514 60 -375 Weight 98.883 kg 98.5 kg Intake: IV 974 Oral 540 360 Output: Urine 300 375 Other: Voiding Method Toilet Urinal - Labs CBC & Chem 7: 07/16/24 06:33 07/15/24 14:12 Labs: Abnormal Lab Results - Last 24 Hours (Table) 07/15/24 07/15/24 07/15/24 Range/Units 14:12 15:40 19:49 APTT >200.0 H* (22.0-30.0) sec Glucose 133 H (74-99) mg/dL Troponin I 0.384 H* (0.000-0.034) ng/mL 07/15/24 Range/Units 19:49 APTT (22.0-30.0) sec Glucose (74-99) mg/dL Troponin I 7.770 H* (0.000-0.034) ng/mL
[2024-07-16] MEDS: PRASUGREL 10 MG TAB PO SCH (13:46)
[2024-07-16] MEDS ORDERED: ATORVASTATIN 80 MG TAB PO SCH (21:00)
--- NOTE | 2024-07-17 01:03 | P.PRCINT ---
Percutaneous Coronary Int. - Percutaneous Coronary Intervention Percutaneous Coronary Intervention: PROCEDURES PERFORMED: Left heart catheterization, bilateral coronary angiography, ultrasound guided arterial access, PCI mid LAD with a 3.5 x 15mm Xience MAJOR, post dilated with a 4.0mm NC balloon, balloon angioplasty diagonal 2 with a 2.5mm balloon, Penumbra aspiration thrombectomy of LAD, IVUS LAD INDICATION: NSTEMI with ongoing chest pain CONSENT:I have discussed the risks, benefits and alternative therapies for the above-mentioned procedure and for both sedation/analgesia as well as necessary blood product administration, if indicated, as they pertain to this patient. The patient has indicated understanding and acceptance of the risks and procedures discussed. PROCEDURE: After the risks, benefits and alternatives of the above mentioned procedure explained in detail with the patient, informed consent was obtained. Patient was taken to the catheterization lab and prepped and draped in usual fashion. Ultrasound guidance was used to assess for arterial access. 1% lidocaine was used to anesthetize the right radial artery. A 6-Japanese sheath was placed in the right radial artery using modified Seldinger technique and ultrasound guidance. Left coronary angiography was performed with a 5-Japanese JL 3.5 catheter and right coronary angiography was performed with a 5-Japanese FR5 catheter in various views. A 5-Japanese FR5 catheter was inserted into the left ventricle and pressure measurements were obtained. The decision was made to perform PCI of the LAD. A 6Fr CLS 3.5 guide was used to engage the left main. A 0.014 BMW wire was advanced into the distal LAD. Penumbra aspiration thrombectomy was used twice. Balloon angioplasty was performed of the diagonal with a 2.75 x 12mm balloon as well as balloon angioplasty of the LAD. IVUS showed reference vessel 3.5-4.0mm. Balloon angioplasty was performed again of the diagonal 2 branch with a 2.5mm NC balloon. Next a 3.5 x 15mm Xience MAJOR was placed in the mid LAD. Repeat IVUS showed some underexpansion of the stent and therefore the stent was post dilated with a 4.0mm NC balloon. Repeat IVUS showed excellent stent apposition. Final angiograms were performed. Pre intervention there was 99% stenosis with SKINNY 2 flow and post intervention there was <10% stenosis with SKINNY 3 flow. The right radial sheath was removed and a TR band was placed with hemostasis achieved. The patient tolerated the procedure well. Patient was transported back to the post catheterization holding area in stable condition. Conscious Sedation: Patient was monitored under the direct supervision of myself for conscious sedation using Versed and fentanyl for a total duration of 56 minutes HEMODYNAMICS: Ao: 108/71 LV: 104/12, LVEDP 23 SELECTIVE CORONARY ARTERIOGRAPHY: LEFT MAIN: The left main is a large caliber vessel which bifurcates into the LAD and circumflex. There is no significant stenosis. LEFT ANTERIOR DESCENDING CORONARY ARTERY: LAD is a large caliber vessel which wraps around to the apex. There is mid LAD 99% stenosis at the level of a moderate caliber diagonal 2 branch. There is 30-40% stenosis of the mid to distal LAD. LEFT CIRCUMFLEX CORONARY ARTERY: Left circumflex is a moderate caliber vessel with 30-40% mid circumflex stenosis. RIGHT CORONARY ARTERY: The right coronary artery is a large caliber vessel which gives off a PDA and PLV branch and is the dominant vessel. There is 20% stenosis. There are small right to left collaterals. FINAL IMPRESSION: 1. CAD as described above including 99% mid LAD stenosis, 30-40% mid to distal LAD stenosis, 30-40% mid circumflex stenosis, and 20% RCA stenosis 2. S/p PCI mid LAD with a 3.5 x 15mm Xience MAJOR, post dilated with a 4.0mm NC balloon, balloon angioplasty diagonal 2 with a 2.5mm balloon 3. Elevated left sided filling pressures PLAN: 1. Aggressive risk factor modification per most recent ACC/AHA guidelines. 2. Continue dual antiplatelets with aspirin and Brillinta for 12 months
== END 2024-07-16 13:58 | disposition home or self-care (01) | DRG 322 ==
LOC: EC 13:40 → 3SCARD 14:59
PROVIDERS: ADMIT Family Medicine; ATTEND Family Medicine
PROC: 4A023N7 Measurement of Cardiac Sampling and Pressure, Left Heart, Percutaneous Approach (ICD-10-PCS; principal; 2024-07-15 17:58)
PROC: 027034Z Dilation of Coronary Artery, One Artery with Drug-eluting Intraluminal Device, Percutaneous Approach (ICD-10-PCS; principal; 2024-07-15 17:58)
PROC: 03CY3ZZ Extirpation of Matter from Upper Artery, Percutaneous Approach (ICD-10-PCS; principal; 2024-07-15 17:58)
PROC: B240ZZ3 Ultrasonography of Single Coronary Artery, Intravascular (ICD-10-PCS; principal; 2024-07-15 17:58)
PROC: B211YZZ Fluoroscopy of Multiple Coronary Arteries using Other Contrast (ICD-10-PCS; principal; 2024-07-15 17:58)
DX: I21.02 ST elevation (STEMI) myocardial infarction involving left anterior descending coronary artery (principal); I47.10 Supraventricular tachycardia, unspecified; F32.A Depression, unspecified; E78.5 Hyperlipidemia, unspecified; I25.10 Atherosclerotic heart disease of native coronary artery without angina pectoris; I25.5 Ischemic cardiomyopathy; K04.7 Periapical abscess without sinus; Z79.82 Long term (current) use of aspirin; Z79.899 Other long term (current) drug therapy; Z28.310 Unvaccinated for COVID-19; Z28.21 Immunization not carried out because of patient refusal
CPT/HCPCS: 36415; 71045; 80053; 83735; 84484; 85025; 85610; 85730; 92921; 92973; 92978; 93005; 93306; 93458; 96374; 99291